=== PATIENT | female | born 1965 | race Caucasian/White ===

== ENCOUNTER → 2016-05-28 | Outpatient (CLI) | payer BC ==
--- NOTE | 2016-05-28 14:10 | DI ---
LUMBAR SPINE SERIES, 05/28/2016 1:10 PM: Clinical History: Low back pain. Previous Exam: None at this facility. Upright AP and lateral and upright lateral flexion and extension views are submitted. The vertebral b odies are of normal height and size. There is disc space narrowing at L4-5 and L5-S1, and the remaini ng lumbar disc spaces are of normal height. There is a grade 1 spondylolisthesis at L4-5 but there is no instability noted with flexion and extension maneuvers. The pedicles are normal. There are degene rative arthritic changes bilaterally in the apophyseal joints at L4-5 and L5-S1. Both SI joints are n ormal. Readin. Chronic disc space narrowing at L4-5 and L5-S1 with a grade 1 spondylolisthesis at L4-5. There is no instability noted with flexion and extension maneuvers. 2. Degenerative arthritic changes are present in the apophyseal joints bilaterally at L4-5 and L5-S1 .
== END ==
LOC: MOB RAD 12:54
PROVIDERS: ATTEND Physician Assistant
DX: M47.27 Other spondylosis with radiculopathy, lumbosacral region (principal); M71.38 Other bursal cyst, other site
CPT/HCPCS: 72110